=== PATIENT | female | born 1955 | race Caucasian/White ===

== ENCOUNTER 2019-05-04 12:12 | Day surgery (SDC) | payer MEDICARE, MEDICAID, SELFPAY ==
--- NOTE | 2019-05-03 19:51 | PCM.HP.BLA ---
History and Physical Date of Admission: 05/03/19 HISTORY AND PHYSICAL ? Lucila Hernandez 1955 ? REFERRING PHYSICIAN: ??Megan Nunez (Mor), LAURA.* ? CHIEF COMPLAINT: ??Consult (Abd pain) ? HPI: The patient is a 63 year old female referred for endoscopy. ?Lucila notes a 3 month history of left lower quadrant pain. ?She notes relatively constant pain in her left lower quadrant. ?If she does need food she notes that overall her pain is better. ?Her pain worsened one week previously. ?She was seen in internal medicine on April 15 with the above complaints. ?Laboratory studies and a CT scan of the abdomen and pelvis was obtained. ?Her white blood cell count was normal. ?Her temperature metabolic panel unremarkable. ?CT scan of the abdomen and pelvis demonstrated fecal retention with a nonobstructive bowel gas pattern and suspected diverticulitis in the distal left colon with possibly some dependent stranding in the pelvis. ?The patient was started on antibiotics. ?She is noted no improvement in the symptoms. ?She is noted watery diarrhea both before and after starting the antibiotics. ?She notes no blood in her stools. ?She denies fever or chills. ?She does note fecal urgency and notes whenever she eats anything she seems after the bathroom promptly after that. ? Repeat CT scan was obtained on April 20 which demonstrated less thickening and inflammatory change in the proximal sigmoid colon and less stranding in the cul-de-sac area but there was felt to be a new area of thickening in the distal colon raising the specter of colitis versus diverticulitis. ? She's had multiple surgical procedures including a cholecystectomy in 1995. ?She had a laparoscopic Lindsay fundoplication in 2001. ?She had incisional hernia repairs in 2011 and 2014.??She developed right main hepatic duct stricture and underwent ERCPs in 2013 with balloon dilatation. ?There was noted to be an incidental significant duodenal lipoma. ?She had had previous upper endoscopies for an overall sensation of abdominal pain and not feeling well. ? The patient had a previous colonoscopy in 2011 by ?demonstrated mild diverticulosis without other abnormalities. ? ? ? The patient is being seen by me today at the request of?Megan Nunez (Mor), FINANCIAL SALES ASSISTANT.*?my opinion and advice regarding left lower quadrant abdominal pain with a complex previous GI history.? PAST?MEDICAL?HISTORY PAST MEDICAL HISTORY Diagnosis Date ? Abnormal liver scan ? ? Acute gastritis ? ? Acute gastritis without mention of hemorrhage ? ? Anxiety 08/13/2012 ? 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 Esophageal reflux 07/02/2005 ? Hemorrhage of gastrointestinal tract, unspecified ? ? Hip arthritis 06/11/2010 ? Hypothyroidism 12/16/2012 ? Ileus, postoperative (HCC) 09/26/2013 ? questionable ileus post operatively. tolerated liquids but abdomen became distended. had some nause but no emesis. No flatus for 4 days. started having liquid BM's on day 5. abd now soft (09/26) ? Incisional hernia 09/30/2011 ? Internal hemorrhoids without mention of complication ? ? Irritable bowel syndrome 07/02/2005 ? Lichen planus ? ? of the mouth ? Lumbar degenerative disc disease 06/19/2014 ? 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 Nontoxic multinodular goiter ? ? Rectal prolapse 08/24/2013 ? Recurrent nongenital herpes simplex virus (HSV) infection 03/20/2015 ? Sciatica 07/02/2005 ? Trigeminal neuralgia 03/20/2015 ? Unspecified asthma(493.90) ? ? Has't used inhaler in 5 yrs. ? Unspecified constipation ? ? IBS ? Unspecified internal derangement of knee 08/09/2007 ??She also notes a history of mucous pemphigus ? ? PAST?SURGICAL?HISTORY PAST SURGICAL HISTORY Procedure Laterality Date ? CARPAL TUNNEL Bilateral 1988, 1994 ? Right then left. ? COLONOSCOP W/ OR W/O BRSH SPEC ? 06/21/03 ? Colonoscopy ? COLONOSCOP W/ OR W/O BRSH SPEC ? 2011 ? EGD W/O OR W/BRUSH/WASH ? 06/21/03 ? EGD ? EGD W/O OR W/BRUSH/WASH ? 10/24/2016 ? EGD ? FNA WITH IMAGING ? 01/15/2011 ? U/S FNA bilateral thyroid nodules ? FNA WITH IMAGING Bilateral 02/27/2015 ? U/S FNA bilateral thyroid nodules ? LAP INC HERNIA REPAIR ? 01-04-15 ? LAP, SURG ENTEROLYSIS ? 01-04-15 ? ? ? PAST SURGICAL HISTORY OF ? 05/31/02 ? Lap Lindsay ? REMOVAL GALLBLADDER ? ? Cholecystectomy ? REPAIR INCIS HERNIA W MESH ? 10-22-11 ? REPAIR INCISIONAL HERNIA,REDUCIBLE ? 10-22-11 ? VAGINAL HYSTERECTOMY ? 1983 ? Hysterectomy, vaginal ? ? ? CURRENT?MEDICATIONS ? Current Outpatient Medications: ciprofloxacin HCl (CIPRO) 500 mg tablet Take 1 tablet by mouth twice daily for 10 days. metroNIDAZOLE (FLAGYL) 500 mg tablet Take 1 tablet by mouth three times daily for 7 days. gabapentin (NEURONTIN) 100 mg capsule TAKE 2 CAPSULES THREE TIMES DAILY diazePAM (VALIUM) 5 mg tablet Take 1 tablet by mouth twice daily for 90 days. baclofen (LIORESAL) 10 mg tablet TAKE 1 TABLET THREE TIMES DAILY NEEDED FOR MUSCLE SPASMS dicyclomine (BENTYL) 10 mg capsule Take 1 capsule by mouth three times daily. mupirocin (BACTROBAN) 2 % ointment Apply 1 application to affected area three times daily. Location: wrist naproxen (NAPROSYN) 500 mg tablet Take 1 tablet by mouth twice daily with meals. for headache as needed ??may repeat in 1 hour ?if needed amitriptyline (ELAVIL) 75 mg tablet Take 2 tablets by mouth daily at bedtime. hselqzkxttIJANT-nyljfh-bfrofigou (BMX 1:1:1) 1:1:1 liqd Mix in equal amounts - 1 T every 2hrs as needed for mouth pain, Swish/swallow or expectorate. (8oz) levothyroxine (SYNTHROID) 88 mcg tablet Take 1 tablet by mouth daily before breakfast. ? No current facility-administered medications for this visit.? ? ALLERGIES:?Morphine; Sulfa (Sulfonamide Antibiotics); Codeine; Dapsone; Dilaudid [Hydromorphone (Bulk)]; Ibuprofen; Meloxicam; Tetracycline; Tizanidine; Valacyclovir; Vicodin [Hydrocodone-Acetaminophen] ? PERSONAL HISTORY:? SOCIAL?HISTORY Social History ??Socioeconomic History ?Marital status: ?Spouse name: Allen ?Number of children: 3 ?Years of education: Not on file ?Highest education level: Not on file ??Occupational History ?Occupation: retired ?Comment: work injury 2006 ??Social Needs ?Financial resource strain: Not on file ?Food insecurity: ?Worry: Not on file ?Inability: Not on file ?Transportation needs: ?Medical: Not on file ?Non-medical: Not on file ??Tobacco Use ?Smoking status: Former Smoker ?Packs/day: 0.50 ?Years: 15.00 ?Pack years: 7.5 ?Types: Cigarettes ?Quit date: 09/14/2004 ?Years since quittin.6 ?Smokeless tobacco: Never Used ??Substance and Sexual Activity ?Alcohol use: No ?Drug use: No ?Sexual activity: Never ??Lifestyle ?Physical activity: ?Days per week: Not on file ?Minutes per session: Not on file ?Stress: Not on file ??Relationships ?Social connections: ?Talks on phone: Not on file ?Gets together: Not on file ?Attends confucianism service: Not on file ?Active member of club or organization: Not on file ?Attends meetings of clubs or organizations: Not on file ?Relationship status: Not on file ?Intimate partner violence: ?Fear of current or ex partner: Not on file ?Emotionally abused: Not on file ?Physically abused: Not on file ?Forced sexual activity: Not on file ??Other Topics ?Concerns: ?Not on file ??Social History Narrative ?Not on file ?? ? FAMILY HISTORY:? FAMILY?HISTORY FAMILY HISTORY Problem Relation Age of Onset ? other (bowel problems) Father ? ? Diabetes Sister ? ? Diabetes Brother ? ? other (kidney transplant) Brother ? ? ? REVIEW OF SYMPTOMS: ??The review of systems data was entered by the nurse and reviewed by me ? Nursing Notes: Martínez Delgado LPN ?04/21/2019 10:45 AM ?Signed REVIEW OF SYSTEMS: ?General:???The patient denies fatigue, denies weight loss, NOTES weight gain, denies feeling hot, and denies feelings of cold. ?Eyes: ?The patient denies glaucoma, denies eye injury/surgery, does not wear glasses or contacts. ?Ear/Nose/Throat: ?The patient denies allergies, denies hayfever, denies ear infections, and denies bloody noses. ?Cardiovascular: ?The patient denies chest pain, denies heart disease, denies high blood pressure,denies cardiac stent, denies prior heart attack, denies irregular heart beat, denies high cholesterol, ?denies poor circulation, denies heart failure, other cardiac issues, denies claudication, denies cold feet, denies peripheral arterial stent. ?Respiratory: ?The patient denies tuberculosis, denies pneumonia, denies frequent cough, denies pulmonary embolism, denies shortness of breath, and denies coughing up blood. ?Gastrointestinal: ?The patient denies difficulty swallowing, NOTES acid reflux, denies ulcers, denies vomiting, denies jaundice/hepatitis, NOTES gallbladder problems, denies black or tarry stools, denies hemorrhoids, denies bleeding from rectum, NOTES diverticulitis, NOTES constipation, NOTES diarrhea, NOTES loss of stool control, and NOTES hernias. ?Kidney/Bladder: ?The patient denies kidney stones, denies urine infections, and denies bloody urine. ?Skin: ?The patient denies a history of skin cancer, denies bleeding/changing moles, and denies a history of skin rash. ?Neurologic: ?The patient denies a history of epilepsy/convulsions, denies headaches, denies head/spinal injuries, and denies stroke/TIA. ?Psychiatric: ?The patient denies psychiatric medications, denies depression, and denies voices, denies substance abuse. ?Endocrine: ?The patient NOTES thyroid disorders, denies diabetes, and denies hormonal problems. ?Hematologic: ?The patient denies a history of bruising, denies bleeding, and denies anemia, denies blood clots. ?Infections: ?The patient denies a history of measles and mumps, denies rheumatic fever, and denies sexually transmitted diseases. ?Musculoskeletal: ?The patient denies back pain/injury, NOTES back problems, denies sciatica, NOTES knee/foot trouble, denies arthritis, or denies gout. ? ? When was patient's last Mammogram screening? 11/01 ? ?Last Colonoscopy: ?10/26 ? Martínez Delgado LPN ? PHYSICAL EXAMINATION: ? General: ?The patient is 63 year old female, well nourished, well hydrated in no acute distress. ?The patient is oriented to time, place, and person. ? VITALS:?Blood pressure 126/66, pulse 89, temperature 36.4 ?C (97.5 ?F), height 162.6 cm (5' 4), weight 89.3 kg (196 lb 12.8 oz), SpO2 96 %.?Body mass index is 33.78 kg/m?.? ? HEENT: ?Normal cephalic, ataumatic, pupils are equally round, sclera are anicteric, mucous membranes are moist, oropharynx is clear. ?Neck has no masses, asymmetry or lymphadenopathy. ?Thyroid is unremarkable. ? Respiratory: ?Clear to auscultation and percussion. ?Normal respiratory excursion and pattern. ? Cardiac: ?Examination is regular rate and rhythm. ? Abdominal exam: ?Soft, tender in the left lower quadrant without peritoneal signs, ?with no palpable masses. ?No hepatosplenomegaly. ?No palpable hernias. ? Rectal exam:?exam deferred ? Extremities: ?no clubbing, cyanosis or edema. ?No adenopathy. ? Other: ? LABORATORY VALUES: As Noted ? RADIOLOGIC STUDIES: ?As Noted ? Assessment ? IMPRESSION:?Left lower quadrant pain complex past surgical history,?colon thickening-colitis more likely than diverticulitis ? PLAN:?? Plan to obtain stool cultures given her looser stools and antibiotic use. ?Also recommend Carole lax in an attempt to see if we can partially clear the proximal fecal loading and recommended a low residue diet. ?The patient is return next week after the stool studies were completed and we will repeat an?abdominal x-ray to see if her proximal fecal loading has decreased ? I plan to perform?upper and lower?endoscopy. ??We discussed the risks and benefits of the planned endoscopy. ?I have informed the patient that complications can occur including failure to complete the endoscopy and perforation. ?The patient had the opportunity to ask questions concerning the planned endoscopy. ?My staff has also explained the procedure to the patient in understandable terms and has given the patient printed material concerning the procedure. ?The patient freely consents to surgery. ? I plan to use golytely bowel preparation for endoscopy ? I plan for monitored anesthetic care. ? Diagnoses:?(K52.9) Idiopathic colitis ?(primary encounter diagnosis) ? My findings have been communicated to??Older?via shared medical record. ?This note will be forwarded to Farhad Gillespie MD. ?? Return to Clinic: The patient is instructed to follow-up with me?in one week. ? Morteza Hernandez MD
--- NOTE | 2019-05-04 | IMM_PTH ---
PATIENT: WILL MONTILLA LOC: EN U#:[id number] AGE/SX: 63/F ROOM: RE05/04/[address]: Dr. Morteza Hernandez MD : 1955 BED: DIS: 05/04/2019 SPEC #: [id number] RECD: 05/06/19 11:30 STATUS: GRANT REQ #: [id number] MATT: 05/04/19 00:[address]: Morteza Hernandez DEPT: IMMUNOHISTOCHEMISTRY RECD BY: Lizette Santana ENTERED: 05/06/19 11:30 SP TYPE: IMMUNO OTHR DR: Dr. Farhad Gillespie MD Tissues: A - Stomach, NOS Procedures: H Pylori (initial) PHYSICIAN & INSTITUTION [place] [id number] SPECIMEN INFORMATION: Tissue Source: A - Antrum biopsy Clinical Info: Abnormal CT scan, left lower quadrant pain Specimen Number: [id number] CPT code: 40019 METHODOLOGY: Deparaffinized sections of prefer/formalin-fixed tissue or PAP/DQ stained slides are incubated with monoclonal/polyclonal antibodies/oligonucleotide probes. Localization is made via biotin free immunoperoxidase method. Appropriate controls are performed and reacted as expected. Results on target cell population are indicated in the following table: RESULTS: ANTIBODY / CLONE RESULT Block A H Pylori (polyclonal) negative These tests were developed and their performance characteristics determined by [facility]. They may not have been cleared or approved by the U.S. Food and Drug Administration. The FDA has determined that such clearance or approval is not necessary. INTERPRETATION: A. Antrum, biopsy: Negative for Helicobacter pylori organisms. SJ:wilfred 05/06/19
[2019-05-04 12:52] VITALS: BP 126/80; PULSE 80; RESP 16; TEMP 36.2; O2SAT 96; BMI 32.9
[2019-05-04] MEDS: Lactated Ringers 1,000 ML 75 ML IV ×2 (13:12→15:30)
--- NOTE | 2019-05-04 13:30 | EGD_PTH ---
PATIENT: WILL MONTILLA LOC: EN U#:[id number] AGE/SX: 63/F ROOM: RE05/04/[address]: Dr. Morteza Hernandez MD : 1955 BED: DIS: 05/04/2019 SPEC #: [id number] RECD: 05/04/19 15:28 STATUS: GRANT REDaja #: [id number] MATT: 05/04/19 13:[address]: Morteza Hernandez DEPT: SURGICAL PATHOLOGY RECD BY: Erwin Mondragon ENTERED: 05/05/19 07:46 SP TYPE: EGD BIOPSY OT DR: Dr. Farhad Gillespie MD Tissues: A - Gastric mucous membrane B - Gastric mucous membrane C - COLON BIOPSY Procedures: Special Stain Group II Surgery Specimen Level IV Alcian Blue/PAS (control) HEADER OPERATION: Colonoscopy, EGD ([facility] [place]) PRE-OP DIAGNOSIS: Abnormal CT scan, left lower quad pain TISSUE SUBMITTED: A - Antrum biopsy, B - GE junction biopsy, C - Random colon biopsies MICROSCOPIC DIAGNOSIS A. Antrum, biopsy: Mild gastritis. See microscopic description and comment. B. GE junction, biopsy: Fragments of gastric mucosa with mild to moderate chronic inflammation. Intestinal metaplasia (goblet cell metaplasia) is not identified. See comment. C. Colon, random biopsy: Fragments of colonic mucosa, no pathologic diagnosis. SJ:rg 05/06/19 COMMENT A. The results of immunohistochemistry for Helicobacter pylori will be reported separately ([id number]). B. Alcian blue/PAS stain with matched control is used in the evaluation of the specimen. MICROSCOPIC DESCRIPTION Slides are reviewed. A. The specimen shows fragments of gastric mucosa with chronic inflammatory cell infiltrates in the lamina propria consisting of lymphocytes and plasma cells, consistent with mild chronic gastritis. GROSS DESCRIPTION A - Received in fixative is one container labeled with the patient's name and designated antrum biopsy. The specimen consists of one irregular fragment of light cordova soft tissue that measures 0.4 x 0.2 x 0.1 cm. The specimen is totally submitted in one cassette. B - Received in fixative is one container labeled with the patient's name and designated GE junction biopsy. The specimen consists of multiple irregular fragments of light cordova soft tissue that in aggregate measure 0.5 x 0.2 x 0.1 cm. The specimen is totally submitted in one cassette. C - Received in fixative is one container labeled with the patient's name and designated random colon biopsy, sigmoid - rectum. The specimen consists of multiple irregular fragments of light cordova soft tissue that in aggregate measure 0.5 x 0.3 x 0.1 cm. The specimen is totally submitted in one cassette. / SJ:rg 05/05/19 TC:3 CPT: 64317 x3, 53684
[2019-05-04 15:04] VITALS: BP 110/70; BP 126/80; PULSE 82; RESP 16; TEMP 36.8; O2SAT 92
[2019-05-04 15:10] VITALS: BP 118/75; BP 126/80; PULSE 82; RESP 16; O2SAT 92
[2019-05-04 15:15] VITALS: BP 121/73; BP 126/80; PULSE 80; RESP 16; O2SAT 95
[2019-05-04 15:20] VITALS: BP 124/68; BP 126/80; PULSE 78; RESP 16; TEMP 36; O2SAT 96
[2019-05-04 16:26] VITALS: BP 126/80
--- NOTE | 2019-05-05 08:52 | OP.ENDO_ITS ---
05/05/2019 Farhad Gillespie [address] [place] [address] Re : Upper GI endoscopy procedure for Lucila Lynn Dear Dr. Gillespie This procedure was performed on Saturday, May 04, 2019. My impressions and recommendations are as follows: Impressions : - Normal examined jejunum. - Duodenal lipoma. - Gastritis. Biopsied. - A Lindsay fundoplication was found. The wrap appears loose. - Mildly severe reflux esophagitis. Biopsied. Recommendations : - Return to my office in 1 week. - Continue present medications. My findings are described in the full procedure note, which is enclosed. If I can be of further assistance, please feel free to contact me at Doctor phone number(s): , Work: . Sincerely, Morteza Hernandez MD 05/04/2019 3:04:34 PM This report has been signed electronically.
--- NOTE | 2019-05-05 08:53 | OP.ENDO_ITS ---
05/05/2019 Farhad Gillespie [address] [place] [address] Re : Colonoscopy procedure for Lucila Hernandez Dear Dr. Gillespie This procedure was performed on Saturday, May 04, 2019. My impressions and recommendations are as follows: Impressions : - The entire examined colon is normal. Biopsied. - The distal rectum and anal verge are normal on retroflexion view. Recommendations : - Discharge patient to home. - Resume previous diet. - Continue present medications. - Return to my office in 1 week. - Repeat colonoscopy is recommended. The colonoscopy date will be determined after pathology results from today's exam become available for review. My findings are described in the full procedure note, which is enclosed. If I can be of further assistance, please feel free to contact me at Doctor phone number(s): , Work: . Sincerely, Morteza Hernandez MD 05/04/2019 3:06:41 PM This report has been signed electronically.
== END 2019-05-04 16:29 | disposition home or self-care (01) ==
LOC: EN 12:13 → AC 12:25
PROVIDERS: Family Provider Internal Medicine; PCP Internal Medicine; Referring Provider Internal Medicine; Visit Provider Surgery
PROC: 0DJD8ZZ Inspection of Lower Intestinal Tract, Via Natural or Artificial Opening Endoscopic (ICD-10-PCS; CPT 45378; principal; 2019-05-04 13:25)
DX: K29.70 Gastritis, unspecified, without bleeding (principal); D17.5 Benign lipomatous neoplasm of intra-abdominal organs; K21.0 Gastro-esophageal reflux disease with esophagitis; F41.9 Anxiety disorder, unspecified; F32.9 Major depressive disorder, single episode, unspecified; L51.9 Erythema multiforme, unspecified; M16.10 Unilateral primary osteoarthritis, unspecified hip; E03.9 Hypothyroidism, unspecified; L43.9 Lichen planus, unspecified; E04.2 Nontoxic multinodular goiter; J45.909 Unspecified asthma, uncomplicated; K58.1 Irritable bowel syndrome with constipation; Z79.2 Long term (current) use of antibiotics; Z79.899 Other long term (current) drug therapy; Z87.891 Personal history of nicotine dependence
CPT/HCPCS: 43239; 45380; 88305; 88313; 88342; J7120; J2405

== ENCOUNTER 2020-07-06 09:04 | Emergency (ER) | payer MEDICARE, MEDICAID, SELFPAY ==
[2020-07-06 09:04] VITALS: BP 163/91; PULSE 86; RESP 18; TEMP 36.1; O2SAT 98; BMI 31.9
--- NOTE | 2020-07-06 09:21 | ED.DCSUM_ITS ---
History of Present Illness Informant: Patient Onset: Month(s) - 1 month Activity at onset: - - movement Timing: Continuous Quality: Sharp, Stabbing Location: Left Chest Current Severity: Moderate Maximum Severity: Severe Worsened By: Movement of Arm, Movement of Torso. Not Worsened By: Exertion Relieved By: Nothing Associated Symptoms: Negative for: Nausea, Vomiting, Diaphoresis, Dyspnea, Cough, Fever, Lightheadedness, Acid Reflux, Palpitations Narrative: 64-year-old female presents to the emergency department with chest pain. The patient has been having intermittent left-sided chest pain after the last 4 weeks. It is in the left side of her chest and her left arm the left side of her back. It has been constant. It is not exertional. She has no shortness of breath. She is not lightheaded or dizzy. No nausea vomiting or diaphoresis. No leg pain or swelling. No recent travel or surgery. No history of DVT or PE. She is a non-smoker. She does have chronic back pain. She states that she takes Valium and baclofen but has not been relieving the pain. She has no history of coronary artery disease. Prior Similar Symptoms: No Recent Illness/Hospitalization: No CVD Risk Factors: Negative for: Hypertension, Diabetes, Hypercholesterolemia, Family History 1' </=55, Smoking PE Risk Factors: Negative for: Recent Travel/Surgery, Recenet Immobilization, Prior DVT or PE, Cancer TAD Risk Factors: Negative for: Marfan's Syndrome, Hypertension, Family History <Moises Mcfadden - Last Filed: 07/06/20 10:22> <Omar Figueroa - Last Filed: 07/06/20 15:40> Chief Complaint: Chest Pain Past Medical History Prior records reviewed: Yes Past Medical History: - - hypothyroidismk, chronic back pain Surgical History: no surgical history Lives: With Family Smoking Status: Never smoker Alcohol: None Drugs: None <Moises Mcfadden - Last Filed: 07/06/20 10:22> <Omar Figueroa - Last Filed: 07/06/20 15:40> - Allergies and Home Meds Allergies/Adverse Reactions: Allergies morphine Allergy (Verified 07/06/20 09:06) Hives Sulfa (Sulfonamide Antibiotics) Allergy (Verified 07/06/20 09:06) Hives Tetracyclines Allergy (Verified 07/06/20 09:06) Rash valacyclovir Allergy (Verified 07/06/20 09:06) Shortness of breath acetaminophen [From Vicodin] Adverse Reaction (Verified 07/06/20 09:06) Upset Stomach codeine Adverse Reaction (Verified 07/06/20 09:06) Vomiting hydrocodone bitartrate [From Vicodin] Adverse Reaction (Verified 07/06/20 09:06) Upset Stomach hydromorphone HCl [From Dilaudid] Adverse Reaction (Verified 07/06/20 09:06) Other meloxicam Adverse Reaction (Verified 07/06/20 09:06) Other tizanidine Adverse Reaction (Verified 07/06/20 09:06) Other lowers blood pressure Primary Care Physician: Farhad Gillespie MD [Primary Care Provider] - As soon as possible Review of Systems All systems negative except as indicated General: Denies: Chills, Fever, Sweats Eyes: Denies: Visual changes - bilaterally, Diplopia ENT: Denies: Rhinorrhea, Sore throat Cardiovascular: Reports: Chest pain. Denies: Palpitations, Heart racing Respiratory: Denies: Dyspnea, Cough, Sputum, Dyspnea on exertion, Orthopnea, Paroxysmal nocturnal dyspnea Gastrointestinal: Denies: Abdominal pain, Nausea, Vomiting, Diarrhea, Melena, Hematochezia Genitourinary: Denies: Dysuria, Hematuria, Frequency Musculoskeletal: Denies: Back pain, Swelling, Extremity Pain Skin: Denies: Rash, Wounds Neurological: Denies: Headache, Weakness, Numbness <Moises Mcfadden - Last Filed: 07/06/20 10:22> Physical Exam Vital Signs/Narrative: Vital Signs Temp Pulse Resp BP Pulse Ox 07/06/20 09:04 97 F L 86 18 163/91 H 98 Inital Vital Signs reviewed: Yes General: Well nourished, Well developed, No Acute Distress Head: Normocephalic, Atraumatic Eyes: Perrl, EOMI ENT: Moist mucous membranes, No rhinorrhea Neck: Supple, Nontender Cardiovascular: Regular rate, Regular rhythm, No murmurs Respiratory: No distress, CTA bilaterally, Chest nontender Abdomen: Soft, Nontender, Nondistended, Normal bowel sounds Back: Nontender, Normal Inspection Extremities: Nontender, No edema Skin: Normal color, No rash Neurological: Alert, Oriented x3, Cranial nerves II-XII grossly intact, Normal Strength, Normal Sensation Psychological: Normal affect, Normal Mood <Moises Mcfadden - Last Filed: 07/06/20 10:22> Diagnostic/Tx/Re-eval Chest X-Ray - ED: 1 View, Read by ED Physician, Read by Radiologist, No Acute Disease - Rhythm Strip Rhythm Strip: Sinus Rhythm Rate: 77 Ectopy: None - EKG Initial EKG Interpretation: Sinus Rhythm, No Acute Injury Pattern Prior: No Prior Treatment: Aspirin Repeat Eval: Pain Free - Medical Decision Making Patient pain-free on arrival. EKG sinus rhythm. 78 bpm. No ischemic changes are noted. She was treated with aspirin. Chest x-ray unremarkable. CBC, BMP, troponin unremarkable. Heart score calculated at 2. Patient has had pain now for a month her troponin is negative her heart score is 2 we do not feel she needs repeat troponin. She does have history of chronic back pain and we told her that her symptoms could possibly be be due to to that however I did instruct her to call her primary today to schedule an appointment to schedule a stress test. She was advised to return for worsening symptoms. She was agreeable with plan all questions answered and she will be discharged home in stable condition. <Moises Mcfadden - Last Filed: 07/06/20 10:22> - Medical Decision Making Patient interviewed and evaluated independently by myself in concert with physician assistant teaching professor. Agree with the above. Patient appears well nontoxic. Patient chest pain has been constant over a period of time. A single troponin should effectively rule her out for ACS. Did advise that she calls her primary care physician for outpatient stress test. Asked to return for new or worsening symptoms. Patient agreeable and discharged home in stable condition. <Omar Figueroa - Last Filed: 07/06/20 15:40> ED Disposition <Moises Mcfadden - Last Filed: 07/06/20 10:22> <Omar Figueroa - Last Filed: 07/06/20 15:40> - Plan for ED Patient: Disposition: Home or Assisted Living Diagnosis: Chest pain, DDD (degenerative disc disease) Instructions: ED Chest Pain Atypical Unkn Cause Referrals: Farhad Gillespie MD [Primary Care Provider] - As soon as possible
--- NOTE | 2020-07-06 09:21 | EKG12_ITS ---
Test Reason : CP Blood Pressure : / mmHG Vent. Rate : 078 BPM Atrial Rate : 078 BPM P-R Int : 170 ms QRS Dur : 112 ms QT Int : 396 ms P-R-T Axes : 041 -21 073 degrees QTc Int : 451 ms Normal sinus rhythm Normal ECG Confirmed by SHAYNE MCFARLANE, JOSEPHINE ([id number]), newspaper editor managing YOSELIN STEPHENS ([id number]) on 07/09/2020 11:24:33 AM Referred By: BRIANNA Confirmed By:JOSEPHINE BELLA MD
[2020-07-06 09:30] LABS: Absolute Lymphocyte Count 1.29 X10^3/uL (0.83-4.51); Absolute Neutrophil Count 3.9 X10^3/uL (2.0-7.7); Basophil# 0.02 X10^3/uL; Basophil% 0.3 % (0-1); Eosinophil# 0.21 X10^3/uL; Eosinophils% 3.6 % (0-5); Hematocrit 39.3 % (37-47); Hemoglobin 12.6 g/dL (12.0-15.0); Lymphocyte # 1.29 X10^3/ul (4.0); Lymphocyte % 22.1 % (19-41); Mean Corp Hgb Conc 32.1 g/dL (32-36); Mean Corpuscular Hgb 27.1 pg (27.0-32.0); Mean Corpuscular Volume 84.5 fL (81-99); Monocyte# 0.39 X10^3/uL; Monocyte% 6.7 % (0-10); NRBC Flagged by Analyzer 0 % (0-5); Platelet Count 252 K/mm3 (150-450); RBC Distribution Width CV 13.4 % (11.6-14.6); RBC Distribution Width SD 41.3 fl (35.1-43.9); Red Blood Count 4.65 M/mm3 (4.2-5.4); White Blood Count 5.8 K/mm3 (4.4-11.0)
[2020-07-06] MEDS: Aspirin 81 MG TAB.CHEW 324 MG PO (09:32)
[2020-07-06 09:34] VITALS: BP 136/81; PULSE 80; RESP 18; O2SAT 99
--- NOTE | 2020-07-06 09:38 | RAD_ITS ---
STUDY: X-RAY CHEST REASON FOR EXAM: Female, 64 years old. CHEST PAIN FOR ABOUT A MONTH, INTERMITTENT, CHANGES LOCATION TECHNIQUE: Single AP portable view of the chest. COMPARISON: None. FINDINGS: EKG electrodes are seen. The lungs are clear and expanded. There is no demonstrated pleural abnormality. Normal size heart. Normal mediastinum and brandon. Normal visualized pulmonary arteries. Normal visualized aortic arch and descending thoracic aorta. Normal visualized thoracic spine. Normal visualized ribs, clavicles, and shoulders. There is no demonstrated abnormality of the visualized soft tissue structures of the upper abdomen. RAD/Chest 1 View (Portable) IMPRESSION: Normal x-ray examination of the chest. Electronically Signed: Reyes Fatima, at 10:10 EDT , Service support ,
[2020-07-06 09:47] LABS: Anion Gap 4 (5-15); BUN 15 mg/dL (7-18); BUN/Creat Ratio 12.7 RATIO (10-20); Calcium,Total 9.1 mg/dL (8.5-10.1); Chloride 108 mmol/L (98-107); Creatinine, Serum 1.18 mg/dL (0.55-1.02); EST Glomerular Filtration Rate 49 mL/min (>60); Est Glom Filt Rate - Afr Amer 59 mL/min (>60); Estimated Creatinine Clearance 41.59 ml/min; Glucose 105 mg/dL (74-106); Potassium 4.3 mmol/L (3.5-5.1); Sodium Level 141 mmol/L (136-145)
[2020-07-06 10:40] VITALS: BP 134/78; PULSE 76; RESP 18; O2SAT 95
== END 2020-07-06 10:43 | disposition home or self-care (01) ==
PROVIDERS: Emergency Provider Physician Assistant Medical; PCP Internal Medicine
DX: R07.9 Chest pain, unspecified (principal)
CPT/HCPCS: 71045; 80048; 84484; 85025; 93005; 99283; A4216

== ENCOUNTER → 2020-07-24 17:39 | Outpatient (CLI) | payer MEDICARE, MEDICAID, SELFPAY ==
[2020-07-06 09:04] VITALS: BMI 31.9
== END ==
PROVIDERS: PCP Internal Medicine; Referring Provider Nurse Practitioner; Visit Provider Nurse Practitioner
DX: Z20.828 Contact with and (suspected) exposure to other viral communicable diseases (principal)
CPT/HCPCS: 87635; C9803; U0003

== ENCOUNTER 2020-09-30 05:23 | Emergency (ER) | payer MEDICARE, MEDICAID, SELFPAY ==
--- NOTE | 2020-09-30 | CT_ITS ---
STUDY: CT ABDOMEN AND PELVIS WITH CONTRAST REASON FOR EXAM: Female, 64 years old. DIFFUSE AB PAIN AND RIGHT SHOULDER PAIN X 5 DAYS. PRIOR MULTIPLE HERNIA REPAIRS,CHOLECYSTECTOMY,HYSTERECTOMY AND RECTAL PROLAPSE REPAIR RADIATION DOSAGE (If Supplied By Facility): CTDIvol = ( 21.63 ) mGy, DLP = ( 1282.79 ) mGycm TECHNIQUE: Transaxial images were obtained from the dome of the diaphragm to the symphysis pubis with oral contrast. Oral and amp; IV Gastrografin and amp; 100mL Isovue-370 was administered. Sagittal and coronal images were reconstructed. Individualized dose optimization techniques were used for this CT. COMPARISON: 04/15/2015 FINDINGS: The visualized lung bases are unremarkable. The visualized portions of the heart are within normal limits. There is a small amount of ascites and pneumoperitoneum primarily in the upper abdomen worrisome for bowel perforation. Normal liver. There are surgical clips in the gallbladder fossa consistent with a prior cholecystectomy. Normal spleen. Normal pancreas. Normal bilateral adrenal glands. Normal right kidney. Normal left kidney. There is an unusual appearance to the gastroesophageal junction likely related to prior Lindsay fundoplication. There is wall thickening of the antrum of the stomach and duodenal bulb with stranding of surrounding fat suggestive of gastritis and/or duodenitis. No change in 1.5 cm lipoma in the second portion the duodenum. Normal colon. The appendix is visualized and appears normal. Normal abdominal aorta. Normal inferior vena cava. Normal retroperitoneum. Normal urinary bladder. Normal abdominal wall. Normal osseous structures. CT/Abdomen/Pelvis WITH Contrast IMPRESSION: Suspect gastritis and/or duodenitis with the perforation with a small amount of ascites and pneumoperitoneum. N.B. : The above information has been verbally conveyed by Morteza Tirado MD to Dr Henry MD, on 09/30/2020 07:52:04 (ET). Electronically Signed: Morteza Tirado MD at 7:53 EST Tel , Service support ,
[2020-09-30 05:24] VITALS: BP 117/64; PULSE 72; RESP 18; TEMP 36.4; O2SAT 95; BMI 32.9
--- NOTE | 2020-09-30 05:51 | ED.VISSUMM ---
- ER Visit Summary Date of Service: 09/30/20 Chief Complaint: Abdominal pain History of Present Illness: The patient is a 64 F presenting with abdominal pain. Patient states she has been having left-sided lower abdominal pain for the past 4 to 5 days. Today she states the pain is more on the right side. The left lower pain has subsided. She denies nausea or vomiting. She had a normal bowel movement last night. She denies fever. She has history of multiple surgeries due to hernias. She has had a cholecystectomy and hysterectomy. Physical Examination: Vitals are stable. Patient is afebrile. Alert no acute distress. HEENT exam is unremarkable. Neck is supple. Lungs are clear and equal bilaterally. Heart is regular rate and rhythm. Abdomen is soft right lower quadrant tenderness Extremities are unremarkable. Skin is warm and dry. No focal neurologic deficit. Remainder of exam is unremarkable. Emergency Department Course and Treatment: Patient has multiple allergies. She was given fentanyl IV. CBC, chemistries unremarkable other than glucose 150, creatinine 1.13. Liver lipase are normal except alk phos 123. Lactate is normal. CT abdomen pelvis is pending at this time and will be checked out to the oncoming physician. Disposition: Pending Impression: Abdominal pain This note was generated with [employer] dictation software. It may contain incorrect words, spelling, and punctuation that were not noted in review of the chart prior to signing ED Disposition - Plan for ED Patient: Referrals: Farhad Gillespie MD [Primary Care Provider] -
[2020-09-30] MEDS: 0.9% Normal Saline 1,000 ML 1000 ML IV (06:03)
[2020-09-30] MEDS: Ondansetron 4 MG/2 ML Vial IV (06:03)
[2020-09-30 06:04] LABS: Absolute Lymphocyte Count 1.54 X10^3/uL (0.83-4.51); Absolute Neutrophil Count 8.1 X10^3/uL (2.0-7.7); Basophil# 0.02 X10^3/uL; Basophil% 0.2 % (0-1); Eosinophil# 0.18 X10^3/uL; Eosinophils% 1.7 % (0-5); Hematocrit 39.3 % (37-47); Hemoglobin 12.6 g/dL (12.0-15.0); Lymphocyte # 1.54 X10^3/ul (4.0); Mean Corp Hgb Conc 32.1 g/dL (32-36); Mean Corpuscular Hgb 27.1 pg (27.0-32.0); Mean Corpuscular Volume 84.5 fL (81-99); Mean Platelet Vol. 9.7 fl (6.2-12.0); Monocyte# 0.39 X10^3/uL; Monocyte% 3.8 % (0-10); NRBC Flagged by Analyzer 0 % (0-5); Neutrophil # 8.14 X10^3/uL (2.7-7.7); Platelet Count 295 K/mm3 (150-450); RBC Distribution Width CV 13.5 % (11.6-14.6); RBC Distribution Width SD 41.7 fl (35.1-43.9); Red Blood Count 4.65 M/mm3 (4.2-5.4); White Blood Count 10.3 K/mm3 (4.4-11.0)
[2020-09-30] MEDS: fentaNYL 100 MCG/2 ML Ampul 50 MCG IV ×3 (06:07→09:28)
[2020-09-30 06:18] LABS: ALB/GLOB Ratio 0.9 RATIO (0.9-2.4); AST(SGOT) 14 U/L (15-37); Alanine Aminotransfer ALT/SGPT 17 U/L (13-56); Albumin, Serum 3.6 g/dL (3.2-5.0); Alkaline Phosphatase 123 U/L (45-117); Anion Gap 3 (5-15); BUN 17 mg/dL (7-18); Chloride 106 mmol/L (98-107); Creatinine, Serum 1.13 mg/dL (0.55-1.02); EST Glomerular Filtration Rate 51 mL/min (>60); Est Glom Filt Rate - Afr Amer 62 mL/min (>60); Estimated Creatinine Clearance 43.43 ml/min; Globulin 4.1 g/dL (2.2-4.2); Glucose 150 mg/dL (74-106); Lipase 144 U/L (73-393); Potassium 3.8 mmol/L (3.5-5.1); Protein, Total 7.7 g/dL (6.4-8.2); Sodium Level 139 mmol/L (136-145)
[2020-09-30 07:24] LABS: Bacteria 0 SEEN /hpf (None Seen); Mucous, Urine 0 SEEN /hpf (<or=2+); Red Blood Cells-Urine 0 SEEN /hpf (0-5); White Blood Cells 0 SEEN /hpf (0-5)
[2020-09-30 07:29] LABS: Color, Urine Yellow (Yellow); Glucose, Dipstick Normal (Normal); Ketone-Dipstick Negative (Negative); Leukocyte Esterase-Dipstick Negative /ul (Negative); Nitrite-Dipstick Negative (Negative); Occult Blood-Urine Negative /ul (Negative); Protein-Dipstick Negative (Negative); Specific Gravity, Urine 1.015 (1.002-1.030); Urine Bilirubin Dipstick Negative (Negative); Urine Clarity Clear (Clear); Urine Urobilinogen Normal (Normal); Urine pH 6.5 (5.0 - 8.0)
[2020-09-30 07:34] LABS: Squamous Epithelial Cells - UA 0-5 SEEN /hpf (5-10)
[2020-09-30 07:56] VITALS: BP 147/74; PULSE 92; RESP 18; O2SAT 100
[2020-09-30 09:06] VITALS: BP 145/70; PULSE 93; RESP 22; O2SAT 98
--- NOTE | 2020-09-30 09:07 | ED.RN ---
[facility] HERE TO TRANSPORT PATIENT, CARE AND REPORT TO THEM, PATIENT STATUS UNCHANGED AT THIS TIME.
== END 2020-09-30 09:41 | disposition short-term general hospital (02) ==
PROVIDERS: Emergency Medicine; Emergency Provider Emergency Medicine; PCP Internal Medicine
DX: R10.9 Unspecified abdominal pain (principal); K29.80 Duodenitis without bleeding
CPT/HCPCS: 74177; 80053; 81001; 83605; 83690; 85025; 87426; 96365; 96375; 96376; 99285; J7030; J7050; Q9967; A4216; J2405

== ENCOUNTER 2021-01-07 08:11 | Outpatient (RCR) | payer MEDICARE, MEDICAID, SELFPAY ==
[2021-01-07 08:30] VITALS: BP 115/78; PULSE 102; RESP 16; TEMP 36.3; BMI 28.6
--- NOTE | 2021-01-07 11:35 | HP.PCM_ITS ---
History of Present Illness Date of Service: 01/07/21 Past Medical History Surgical History: no surgical history Allergies/Adverse Reactions: Allergies morphine Allergy (Verified 09/30/20 05:27) Hives Sulfa (Sulfonamide Antibiotics) Allergy (Verified 09/30/20 05:27) Hives Tetracyclines Allergy (Verified 09/30/20 05:27) Rash valacyclovir Allergy (Verified 09/30/20 05:27) Shortness of breath acetaminophen [From Vicodin] Adverse Reaction (Verified 09/30/20 05:27) Upset Stomach codeine Adverse Reaction (Verified 09/30/20 05:27) Vomiting hydrocodone bitartrate [From Vicodin] Adverse Reaction (Verified 09/30/20 05:27) Upset Stomach hydromorphone HCl [From Dilaudid] Adverse Reaction (Verified 01/07/21 08:44) HYPOTENSION meloxicam Adverse Reaction (Verified 01/07/21 08:44) MOOD tizanidine Adverse Reaction (Verified 01/07/21 08:44) HYPOTENSION lowers blood pressure Home Medications: Ambulatory Orders Medication Instructions Recorded Amitriptyline HCl [Elavil] 150 mg PO QHS 01/02/15 Diazepam [Valium] 5 mg PO BID 01/02/15 Dicyclomine HCl [Bentyl] 10 mg PO TIDAC 01/02/15 Gabapentin [Neurontin] 200 mg PO TID 01/02/15 Levothyroxine [Synthroid] 100 mcg PO DAILY 01/02/15 Baclofen 10 mg PO TID 05/02/19 Magic Mouth Wash 5 ml PO TID 09/30/20 Pantoprazole Sodium [Protonix] 40 mg PO BID 01/07/21 Smoking Status: Never smoker - Physical Exam Vital Signs Temp Pulse Resp BP 97.4 F L 102 H 16 115/78 01/07/21 08:30 01/07/21 08:30 01/07/21 08:30 01/07/21 08:30 Wound Measurements and Assessment WC - Nurse 1 - General Ulcer Measurement Start: 01/07/21 08:29 Freq: Status: Active Protocol: Activity Type Activity Date Activity User E-Sign Co-Sign Detail Recorded Client Recorded Date Recorded By Document 01/07/21 08:30 [facility] [id number] 01/07/21 08:41 BMF 01/07/21 08:30 Wound Center Nurse 1 [Ulcer Assessment] #1- MID ABDOMEN POST OP ([facility]) -Combined with other wound No -Current Size (cm) - Length 1 -Current Size (cm) - Width 0.8 -Current Size (cm) - Depth 0.1 -Total Square Cm 0.8 -Date of Last Picture (Recall this 01/07/21 field) -Photo Taken Yes -Epithelialization None Present -Tunneling No -Undermining/Tunneling No -Circular Undermining No -Exudate Amt None Present -Wound Margin Distinct, Outline Attached -Granulation Amt None Present (0 %) -Slough/Fibrin Yes -Necrosis Amt Large (67-100%) -Necrotic Tissue Type Eschar -Texture (Haley-wound Skin Appearance) Assessed, Scarring -Moisture (Haley-wound Skin Appearance Assessed,Dry/ ) Scaly -Color (Haley-wound Skin Appearance) Assessed -Temperature (Haley-wound Skin No Abnormality Appearance) (Pt Warm) -Tenderness on Palpation (Haley-wound No Skin Appearance) -Ulcer Cleansing Rinsed/ Irrigated with Saline -Foul Odor after Cleansing No -Anesthetic Used 4% Lidocaine Solution WC - Nurse 2 - General Ulcer CM Notes Start: 01/07/21 08:29 Freq: Status: Active Protocol: Activity Type Activity Date Activity User E-Sign Co-Sign Detail Recorded Client Recorded Date Recorded By Document 01/07/21 09:02 [email or web address] [id number] 01/07/21 09:03 [email or web address] 01/07/21 09:02 Wound Center Nurse 2 [Procedure/Treatment] -Time 09:02 -Correct Patient Yes -Correct Side, Site, Position Yes -Correct Procedure Yes -Procedure Performed Yes -Type of Procedure Debridement -Clinical Debridement Subcutaneous -Tissue Removed Subcutaneous -Post Debridement (cm) - Length 0.4 -Post Debridement (cm) - Width 0.4 -Post Debridement (cm) - Depth 0.2 -Total Square (Post) (cm) 0.16 -Area of Debridement (cm) - Length 0.4 -Area of Debridement (cm) - Width 0.4 -Total Square (Area) (cm) 0.16 -Tunneling No -Undermining/Tunneling No -Circular Undermining No -Wound/Ulcer Outcome Not Healed -Ulcer Cleansing Rinsed/ Irrigated with Saline -Foul Odor after Cleansing No -Bioengineered Tissue No -Bleeding Controlled with Pressure -Offloading No -Treatment Response Procedure Tolerated Well -Debridement - Subq, 1st 20sq cm Yes [See Physician Procedure note for Specifics] Pain Scale: 0-10 Numeric [Pain] -Is Patient Pain Free? Yes - Nurse 3 - General Ulcer D/C NN Start: 01/07/21 08:29 Freq: Status: Active Protocol: Activity Type Activity Date Activity User E-Sign Co-Sign Detail Recorded Client Recorded Date Recorded By Document 01/07/21 09:10 [facility] [id number] 01/07/21 09:11 [facility] 01/07/21 09:10 Wound Care Nurse 3 [Wound Dressing] #1- MID ABDOMEN POST OP ([facility]) -Ulcer Cleansing Rinsed/ Irrigated with Saline -Foul Odor after Cleansing No -Primary Dressing Applied C Hydrogel ($) -Primary Dressing Covered/Secured Dry Gauze, with Secured with Tape [Post Procedure Tolerated] -Treatment Response Procedure Tolerated Well Pain Scale: 0-10 Numeric [Pain] -Is Patient Pain Free? Yes - Visit Discharge [Visit Discharge Information] -Discharge Condition Stable -Ambulatory Status Ambulatory -Transportation Private Auto Debridement Note Post-Debridement Measurements/Treatment - Nurse 2 - General Ulcer CM Notes Start: 01/07/21 08:29 Freq: Status: Active Protocol: Activity Type Activity Date Activity User E-Sign Co-Sign Detail Recorded Client Recorded Date Recorded By Document 01/07/21 09:02 [id number] 01/07/21 09:03 [email or web address] 01/07/21 09:02 Wound Center Nurse 2 #1- MID ABDOMEN POST OP ([facility]) -Time 09:02 -Correct Patient Yes -Correct Side, Site, Position Yes -Correct Procedure Yes -Procedure Performed Yes -Type of Procedure Debridement -Clinical Debridement Subcutaneous -Tissue Removed Subcutaneous -Post Debridement (cm) - Length 0.4 -Post Debridement (cm) - Width 0.4 -Post Debridement (cm) - Depth 0.2 -Total Square (Post) (cm) 0.16 -Area of Debridement (cm) - Length 0.4 -Area of Debridement (cm) - Width 0.4 -Total Square (Area) (cm) 0.16 -Tunneling No -Undermining/Tunneling No -Circular Undermining No -Wound/Ulcer Outcome Not Healed -Ulcer Cleansing Rinsed/ Irrigated with Saline -Foul Odor after Cleansing No -Bioengineered Tissue No -Bleeding Controlled with Pressure -Offloading No -Treatment Response Procedure Tolerated Well -Debridement - Subq, 1st 20sq cm Yes Pain Scale: 0-10 Numeric Is Patient Pain Free? Yes - Nurse 3 - General Ulcer D/C NN Start: 01/07/21 08:29 Freq: Status: Active Protocol: Activity Type Activity Date Activity User E-Sign Co-Sign Detail Recorded Client Recorded Date Recorded By Document 01/07/21 09:10 [facility] [id number] 01/07/21 09:11 [facility] 01/07/21 09:10 Wound Care Nurse 3 #1- MID ABDOMEN POST OP ([facility]) -Ulcer Cleansing Rinsed/ Irrigated with Saline -Foul Odor after Cleansing No -Primary Dressing Applied C Hydrogel ($) -Primary Dressing Covered/Secured with Dry Gauze, Secured with Tape Treatment Response Procedure Tolerated Well Pain Scale: 0-10 Numeric Is Patient Pain Free? Yes - Visit Discharge Discharge Condition Stable Ambulatory Status Ambulatory Transportation Private Auto
--- NOTE | 2021-01-08 19:58 | HP.PCM_ITS ---
History of Present Illness Date of Service: 01/07/21 Chief Complaint: Non healing midline abdominal ulcer History of Wound: Patient had emergency surgery at [facility] 09/30/20 for an exploratory laparotomy, washout, biopsy of gastric perforation, modified Hector patch and wound VAC placement for a perforated duodenal ulcer and acute peritonitis. She now has a midline abdominal incision that has an area that will not heal. The small area will scab over, then will re open and leak. She has been putting dry gauze on the scabbed area. [facility] Medical History (Updated 01/09/21 @ 11:14 by Sherry Gallegos [employer], [employer]) Duodenal ulcer, perforated FHx: cholecystectomy GERD (gastroesophageal reflux disease) Rectal prolapse no medical history Home Medications amitriptyline 150 mg PO QHS 01/02/15 [History Last Taken Unknown] diazepam 5 mg PO BID 01/02/15 [History Last Taken Unknown] dicyclomine 10 mg PO TIDAC 01/02/15 [History Last Taken Unknown] gabapentin 200 mg PO TID 01/02/15 [History Last Taken 05/04/19 12:50] levothyroxine 100 mcg PO DAILY 01/02/15 [History Last Taken Unknown] baclofen 10 mg PO TID 05/02/19 [History Last Taken 05/04/19 12:50] Magic Mouth Wash 5 ml PO TID 09/30/20 [History Last Taken Unknown] pantoprazole 40 mg PO BID 01/07/21 [History Last Taken Unknown] Allergy/AdvReac Type Severity Reaction Status Date / Time morphine Allergy Hives Verified 09/30/20 05:27 Sulfa (Sulfonamide Allergy Hives Verified 09/30/20 05:27 Antibiotics) Tetracyclines Allergy Rash Verified 09/30/20 05:27 valacyclovir Allergy Shortness Verified 09/30/20 05:27 of breath acetaminophen [From Vicodin] AdvReac Upset Verified 09/30/20 05:27 Stomach codeine AdvReac Vomiting Verified 09/30/20 05:27 hydrocodone bitartrate AdvReac Upset Verified 09/30/20 05:27 [From Vicodin] Stomach hydromorphone HCl AdvReac HYPOTENSION Verified 01/07/21 08:44 [From Dilaudid] meloxicam AdvReac MOOD Verified 01/07/21 08:44 tizanidine AdvReac HYPOTENSION Verified 01/07/21 08:44 no significant family history Surgical History (Updated 01/09/21 @ 10:04 by Sherry Gallegos [employer], [employer]ER[employer]) H/O: hysterectomy History of incisional hernia repair History of Lindsay fundoplication Social History (Reviewed 01/08/21 @ 20:14 by Sherry Gallegos [employer], [employer]ER[employer]) Smoking Status: Never smoker ROS Constitutional Constitutional: Reports systems reviewed and no addt'l complaints, except as documented Eyes Eyes: Reports none ENT HEENT: Reports none Cardiovascular Cardiovascular: Denies chest pain at rest, irregular heart rhythm, leg edema or syncope Respiratory/Chest Respiratory/Chest: Denies chest congestion, cough, dyspnea or shortness of breat h at rest Gastrointestinal Gastrointestinal: Denies abdominal pain, change in stool character or diarrhea Musculoskeletal Musculoskeletal: Reports none Integumentary Integumentary: Reports skin ulcer Neurologic Neurologic: Reports none Psychiatric Psychiatric: Reports none Endocrine Endocrinology: Reports none Allergic/Immunologic Allergic/Immunologic: Reports none Physical Exam Const alert, oriented x3 and no apparent distress General Appearance: cooperative and well kempt Orientation / Consciousness: awake HEENT normocephalic and head/scalp atraumatic Face and Sinus: normal facial exam Eyes EOMs intact bilaterally General Eye: normal appearance of both eyes Neck full ROM Lymph Lymphatic: no lymphadenopathy noted Resp normal respiratory effort and normal air movement Effort and Inspection: able to speak in complete sentences and symmetric chest movement Auscultation: clear to auscultation bilaterally Cardio regular rate and regular rhythm Palpation: normal PMI Rate: regular rate Rhythm: regular rhythm GI soft to palpation and non-tender Auscultation: normoactive bowel sounds Palpation: soft; Negative for tender Rectal Exam: deferred Extremity normal to inspection, full ROM and no pedal edema General Extremity: normal exam except as noted Skin Skin Narrative: Midabdominal surgical incision is healed except for a small area in the center is small open area. Incisional scarring is thick, pink and firm. Neuro CN's II-XII intact bilaterally Psych mental status grossly normal Assessment and Debridement #1- MID ABDOMEN POST OP ([facility]): Post-Debridement Measurements/Treatment WC - Nurse 1 - General Ulcer Assessment Start: 01/07/21 08:29 Freq: Status: Active Protocol: LOWEXT Activity Type Activity Date Activity User E-Sign Co-Sign Detail Recorded Client Recorded Date Recorded By Document 01/07/21 08:30 [facility] [id number] 01/07/21 08:41 [facility] LESLY - Nurse 2 - General Ulcer CM Notes Start: 01/07/21 08:29 Freq: Status: Active Protocol: Activity Type Activity Date Activity User E-Sign Co-Sign Detail Recorded Client Recorded Date Recorded By Document 01/07/21 09:02 [facility] [id number] 01/07/21 09:03 [facility] GRACE - Nurse 3 - General Ulcer D/C NN Start: 01/07/21 08:29 Freq: Status: Active Protocol: Activity Type Activity Date Activity User E-Sign Co-Sign Detail Recorded Client Recorded Date Recorded By Document 01/07/21 09:10 [facility] [id number] 01/07/21 09:11 [facility] Wound Debrided: Midline abdominal ulcer in the center of healed incision. Laterality: Not Applicable Type of Debridement: Excisional debridement Anesthesia Used: 5% Lidocaine Gel Depth: Down to and including healthy tissue and in the subcutaneous layer Percentage of Wound Debrided: 100 Instrument Used: 3mm curette Tissue Removed: Subcutaneous tissue and slough Severity: Fat Layer Exposed Amt of Bleeding w/Debridement: Mild Bleeding Controlled with: Pressure Patient Tolerated Procedure: Patient tolerated procedure well Assessment & Plan Assessment/Plan (1) Skin ulcer of abdominal wall with fat layer exposed: Status: Chronic Code(s): L98.492 - Non-pressure chronic ulcer of skin of other sites with fat layer exposed Plan: Wound culture obtained today. Depending on the results of the culture, it may necessitate the need for antibiotics. Wound care is collagen hydrogel covered by dry gauze daily. Encouraged increase in protein intake to assist with wound healing. Follow up one week. (2) Duodenal ulcer, perforated: Status: Inactive Code(s): K26.5 - Chronic or unspecified duodenal ulcer with perforation (3) Obesity: Status: Acute Code(s): E66.9 - Obesity, unspecified Qualifiers: Obesity type: unspecified obesity type Obesity classification: adult class 1 (BMI 30 - 34.9) Serious obesity comorbidity presence: without serious comorbidity Body mass index: BMI 30.0-30.9 Qualified Code(s): E66.9 - Obesity, unspecified; Z68.30 - Body mass index [BMI]30.0-30.9, adult Office Visits / Consults: [id number] OV L4 Est (25 modifier) 111xxx-113xx: [id number] Magalys subq tissue 20 sq cm/<
== END 2021-01-11 23:59 ==
LOC: WC 08:11
PROVIDERS: PCP Internal Medicine; Visit Provider Nurse Practitioner Family
DX: L98.492 Non-pressure chronic ulcer of skin of other sites with fat layer exposed (principal); Z98.890 Other specified postprocedural states; Z87.19 Personal history of other diseases of the digestive system; K21.9 Gastro-esophageal reflux disease without esophagitis; Z79.899 Other long term (current) drug therapy; E66.9 Obesity, unspecified; Z68.30 Body mass index [BMI] 30.0-30.9, adult
CPT/HCPCS: 11042; 99213; G0463

== ENCOUNTER → 2021-01-07 14:21 | Outpatient (CLI) | payer MEDICARE, MEDICAID, SELFPAY ==
[2021-01-07 08:30] VITALS: BMI 28.6
== END ==
PROVIDERS: PCP Internal Medicine; Referring Provider Nurse Practitioner Family; Visit Provider Nurse Practitioner Family
DX: L98.499 Non-pressure chronic ulcer of skin of other sites with unspecified severity (principal); L98.492 Non-pressure chronic ulcer of skin of other sites with fat layer exposed; K21.9 Gastro-esophageal reflux disease without esophagitis; E66.9 Obesity, unspecified; Z98.890 Other specified postprocedural states; Z79.899 Other long term (current) drug therapy; Z68.30 Body mass index [BMI] 30.0-30.9, adult; Z87.19 Personal history of other diseases of the digestive system
CPT/HCPCS: 11042; 87070; 87075; 87205; 99213; G0463

== ENCOUNTER 2021-01-21 13:15 | Outpatient (RCR) | payer MEDICARE, MEDICAID, SELFPAY ==
[2021-01-12 00:55] VITALS: BP 115/78; PULSE 102; RESP 16; TEMP 36.3
[2021-01-14 13:51] VITALS: BP 137/76; PULSE 92; TEMP 36.1; BMI 28.6
--- NOTE | 2021-01-14 15:36 | PCM.WC.PN ---
History of Present Illness Date of Service: 01/14/21 Chief Complaint: Non healing midline abdominal ulcer History of Wound: Patient had emergency surgery at [facility] 09/30/20 for an exploratory laparotomy, washout, biopsy of gastric perforation, modified Hector patch and wound VAC placement for a perforated duodenal ulcer and acute peritonitis. She now has a midline abdominal incision that has an area that will not heal. The small area will scab over, then will re open and leak. She has been putting dry gauze on the scabbed area. Wound care - Collagen hydrogel covered with gauze daily. Wound culture from 01/07/21 was negative for bacterial growth. Patient states her appetite has been good. She denies any fevers. Progress of Wound: Mild improvement. The overall size is smaller. Objective Data Objective Data Vital Signs: Vital Signs Temp Pulse Resp BP 97.0 F L 92 16 137/76 H 01/14/21 13:51 01/14/21 13:51 01/12/21 00:55 01/14/21 13:51 Weight: 167 lb Body Mass Index (BMI) 28.6 Assessment & Plan Assessment/Plan (1) Skin ulcer of abdominal wall with fat layer exposed: Status: Chronic Code(s): L98.492 - Non-pressure chronic ulcer of skin of other sites with fat layer exposed (2) Obesity: Status: Acute Code(s): E66.9 - Obesity, unspecified Qualifiers: Obesity type: unspecified obesity type Obesity classification: adult class 1 (BMI 30 - 34.9) Serious obesity comorbidity presence: without serious comorbidity Body mass index: BMI 30.0-30.9 Qualified Code(s): E66.9 - Obesity, unspecified; Z68.30 - Body mass index [BMI]30.0-30.9, adult Plan: Wound culture obtained 01/07/21 showed no bacterial growth. Wound care is collagen hydrogel covered by dry gauze daily. Encouraged increase in protein intake to assist with wound healing.Instructed how to massage the midline abdominal scar with lotion to help with softening the scar. Follow up one week. Charges/Coding Procedures Integumentary 111xxx-113xx: [id number] Magalys subq tissue 20 sq cm/< Physical Exam Const alert and oriented x3 General Appearance: cooperative HEENT normocephalic Head and Scalp: atraumatic Eyes PERRL Resp clear to auscultation bilaterally Cardio regular rate Extremity normal to inspection Skin no rashes or lesions noted Neuro CN's II-XII intact bilaterally Psych Appearance: grossly normal and well kempt Thought Process: normal thought process Debridement Note Debridement Note Post-Debridement Measurements and Additional Note: Post-Debridement Measurements/Treatment WC - Nurse 2 - General Ulcer CM Notes Start: 01/14/21 13:51 Freq: Status: Active Protocol: Activity Type Activity Date Activity User E-Sign Co-Sign Detail Recorded Client Recorded Date Recorded By Document 01/14/21 14:10 [id number] 01/14/21 14:12 01/14/21 14:10 Wound Center Nurse 2 #1- MID ABDOMEN POST OP ([facility]) -Time 14:11 -Correct Patient Yes -Correct Side, Site, Position Yes -Correct Procedure Yes -Procedure Performed Yes -Type of Procedure Debridement -Clinical Debridement Subcutaneous -Tissue Removed Subcutaneous -Post Debridement (cm) - Length 0.4 -Post Debridement (cm) - Width 0.3 -Post Debridement (cm) - Depth 0.2 -Total Square (Post) (cm) 0.12 -Area of Debridement (cm) - Length 0.4 -Area of Debridement (cm) - Width 0.3 -Total Square (Area) (cm) 0.12 -Undermining/Tunneling No -Circular Undermining No -Wound/Ulcer Outcome Not Healed -Ulcer Cleansing Rinsed/ Irrigated with Saline -Foul Odor after Cleansing No -Bioengineered Tissue No -Bleeding Controlled with Pressure -Offloading No -Treatment Response Procedure Tolerated Well -Debridement - Subq, 1st 20sq cm Yes Pain Scale: 0-10 Numeric Is Patient Pain Free? Yes - Nurse 3 - General Ulcer D/C NN Start: 01/14/21 13:51 Freq: Status: Active Protocol: Activity Type Activity Date Activity User E-Sign Co-Sign Detail Recorded Client Recorded Date Recorded By Document 01/14/21 14:12 [email or web address] [id number] 01/14/21 14:13 01/14/21 14:12 Wound Care Nurse 3 #1- MID ABDOMEN POST OP ([facility]) -Ulcer Cleansing Rinsed/ Irrigated with Saline -Foul Odor after Cleansing No -Primary Dressing Applied C Hydrogel ($) -Primary Dressing Covered/Secured with Dry Gauze & Roll Gauze, Secured with Tape Pain Scale: 0-10 Numeric Is Patient Pain Free? Yes WC - Visit Discharge Discharge Condition Stable Ambulatory Status Ambulatory Transportation Private Auto Medication Reconcilliation completed & Yes provided to patient/care provider Clinical Summary of Care Provided Yes Wound debrided: Midline abdominal ulcer Type of Debridement: Excisional debridement Anesthesia Used: 5% Lidocaine Gel Depth: Down to and including healthy tissue and in the subcutaneous layer Percentage of wound debrided: 100 Instrument Used: 3mm curette Tissue Removed: Subcutaneous tissue and slough Severity: Limited To Skin Breakdown Amount of bleeding with debridement: Mild Bleeding Controlled with: Pressure Patient tolerated procedure: Patient tolerated procedure well
[2021-01-21 12:59] VITALS: BP 121/71; PULSE 97; RESP 18; TEMP 36.3; BMI 28.6
--- NOTE | 2021-01-21 13:39 | PN.PCM_ITS ---
History of Present Illness Date of Service: 01/21/21 Chief Complaint: Non healing midline abdominal ulcer History of Wound: Patient had emergency surgery at [facility] 09/30/20 for an exploratory laparotomy, washout, biopsy of gastric perforation, modified Hector patch and wound VAC placement for a perforated duodenal ulcer and acute peritonitis. She now has a midline abdominal incision that has an area that will not heal. The small area will scab over, then will re open and leak. She has been putting dry gauze on the scabbed area. Wound care - Collagen hydrogel covered with gauze daily. Wound culture from 01/07/21 was negative for bacterial growth. Patient states her appetite has been good. She denies any fevers. Progress of Wound: She is healed today. Objective Data Objective Data Vital Signs: Vital Signs Temp Pulse Resp BP 97.4 F L 97 18 121/71 H 01/21/21 12:59 01/21/21 12:59 01/21/21 12:59 01/21/21 12:59 Weight: 167 lb Body Mass Index (BMI) 28.6 Assessment & Plan Assessment/Plan (1) Skin ulcer of abdominal wall with fat layer exposed: (2) Obesity: QUALIFIERS: Obesity type: unspecified obesity type Obesity classification: adult class 1 (BMI 30 - 34.9) Serious obesity comorbidity presence: without serious comorbidity Body mass index: BMI 30.0-30.9 Qualified Code(s): E66.9 - Obesity, unspecified; Z68.30 - Body mass index [BMI]30.0-30.9, adult PLAN: Wound culture obtained 01/07/21 showed no bacterial growth. Ulcer is healed today.?? Instructed her to continue to lotion and to the scar area. Continue to do manual massage 1-2 times a day to help soften scarring. Instructed her it may take 6 to 12 months for the scarring to completely heal and to soften. Encouraged increase in protein intake to assist with wound healing.Instructed how to massage the midline abdominal scar with lotion to help with softening the scar. Follow up as needed. Charges/Coding Visit Charges Office Visits / Consults: [id number] OV L3 Est Physical Exam Const alert and oriented x3 General Appearance: cooperative HEENT normocephalic Head and Scalp: atraumatic Eyes PERRL Resp normal respiratory effort Cardio regular rate GI non-tender Palpation: soft Extremity normal capillary refill Skin Wound Narrative: Midline ulcer is healed today. The scarring has an indentation in the center of the scar tissue where the incision was located. Neuro CN's II-XII intact bilaterally Psych Appearance: grossly normal Thought Process: normal thought process Debridement Note Debridement Note Post-Debridement Measurements and Additional Note: Post-Debridement Measurement s/Treatment LESLY - Nurse 1 - General Ulcer Assessment Start: 01/14/21 13:51 Freq: Status: Active Protocol: ASHLI Activity Type Activity Date Activity User E-Sign Co-Sign Detail Recorded Client Recorded Date Recorded By Document 01/14/21 13:51 KR [id number] 01/14/21 13:54 KR Document 01/21/21 12:59 DL [id number] 01/21/21 13:04 DL 01/14/21 01/21/21 13:51 12:59 WC - Today's Visit Information Type of service Follow-up Visit Follow-up Visit (Physician/AUTOMATIC CENTRIFUGAL STATION OPERATOR (Physician/AUTOMATIC CENTRIFUGAL STATION OPERATOR ) ) Arrival Mode Ambulatory Ambulatory Transfer Assistance None Patient Identification Verified (Name & Yes Yes ) Patient Requires Transmission-Based No Precautions Height and Weight Body Mass Index (BMI) 28.6 28.6 BMI Classification Overweight Overweight Vital Signs Temperature (97.8 F-99.1 F) 97.0 F L 97.4 F L Temperature Source Temporal Temporal Pulse Rate (60-100) 92 97 Pulse Location Monitor Monitor Respiratory Rate (12-18) 18 Respiratory rate source Observation Blood Pressure (90/60-120/80) 137/76 H 121/71 H Blood Pressure Mean (mm Hg) 96 87 Source Monitor Position Sitting Blood Pressure Location Right Arm History Since Last Visit- (Skip if this is Patient's initial visit) Have you changed medications since your No No last visit? Any new allergies or adverse reactions No No Had a fall/change in ADL's that may No No increase risk of falls Signs or symptoms of abuse and/or No No neglect since last visit Have you been in the hospital since your No No last visit? Has dressing in place as prescribed Yes Yes Has compression in place as prescribed N/A N/A Has offloadiing in place as prescribed N/A N/A Experienced any changes in pain level or Yes No management Left Footwear Regular Shoe Right Footwear Regular Shoe Pain Scale: 0-10 Numeric Is Patient Pain Free? Yes Yes - Nurse 1 - General Ulcer Measurement Start: 01/14/21 13:51 Freq: Status: Active Protocol: Activity Type Activity Date Activity User E-Sign Co-Sign Detail Recorded Client Recorded Date Recorded By Document 01/14/21 13:51 KR [id number] 01/14/21 13:54 KR Document 01/21/21 12:59 DL [id number] 01/21/21 13:04 DL 01/14/21 01/21/21 13:51 12:59 Wound Center Nurse 1 #1- MID ABDOMEN POST OP ([facility]) -Current Size (cm) - Length 0.1 0 -Current Size (cm) - Width 0.1 0 -Current Size (cm) - Depth 0.1 0 -Total Square Cm 0.01 0 -Photo Taken Yes -Exudate Amt None Present None Present -Wound Margin Distinct, Flat & Intact Outline Attached -Granulation Amt None Present (0 Large (67-100%) %) -Granulation Quality [place] -Slough/Fibrin No -Necrosis Amt None Present (0 %) -Structure Exposed N/A -Texture (Haley-wound Skin Appearance) Assessed, Scarring Scarring -Moisture (Haley-wound Skin Appearance) No Abnormality, No Abnormality Assessed -Color (Haley-wound Skin Appearance) No Abnormality, No Abnormality Assessed -Temperature (Haley-wound Skin No Abnormality No Abnormality Appearance) (Pt Warm) (Pt Warm) -Tenderness on Palpation (Haley-wound No No Skin Appearance) -Ulcer Cleansing Rinsed/ Rinsed/ Irrigated with Irrigated with Saline Saline -Foul Odor after Cleansing No No -Anesthetic Used 4% Lidocaine Solution - Nurse 2 - General Ulcer CM Notes Start: 01/14/21 13:51 Freq: Status: Active Protocol: Activity Type Activity Date Activity User E-Sign Co-Sign Detail Recorded Client Recorded Date Recorded By Document 01/14/21 14:10 [id number] 01/14/21 14:12 Document 01/21/21 13:30 [id number] 01/21/21 13:31 JF 01/14/21 01/21/21 14:10 13:30 Wound Center Nurse 2 #1- MID ABDOMEN POST OP ([facility]) -Time 14:11 -Correct Patient Yes No -Correct Side, Site, Position Yes No -Correct Procedure Yes No -Procedure Performed Yes No -Type of Procedure Debridement -Clinical Debridement Subcutaneous -Tissue Removed Subcutaneous -Post Debridement (cm) - Length 0.4 0 -Post Debridement (cm) - Width 0.3 0 -Post Debridement (cm) - Depth 0.2 0 -Total Square (Post) (cm) 0.12 0 -Area of Debridement (cm) - Length 0.4 0 -Area of Debridement (cm) - Width 0.3 0 -Total Square (Area) (cm) 0.12 0 -Undermining/Tunneling No -Circular Undermining No -Wound/Ulcer Outcome Not Healed Healed- Epithelialized -Ulcer Cleansing Rinsed/ Irrigated with Saline -Foul Odor after Cleansing No -Bioengineered Tissue No -Bleeding Controlled with Pressure -Offloading No -Treatment Response Procedure Tolerated Well -Debridement - Subq, 1st 20sq cm Yes Pain Scale: 0-10 Numeric Is Patient Pain Free? Yes Yes - Nurse 3 - General Ulcer D/C NN Start: 01/14/21 13:51 Freq: Status: Active Protocol: Activity Type Activity Date Activity User E-Sign Co-Sign Detail Recorded Client Recorded Date Recorded By Document 01/14/21 14:12 [id number] 01/14/21 14:13 Document 01/21/21 13:31 [id number] 01/21/21 13:31 01/14/21 01/21/21 14:12 13:31 Wound Care Nurse 3 #1- MID ABDOMEN POST OP ([facility]) -Ulcer Cleansing Rinsed/ Irrigated with Saline -Foul Odor after Cleansing No -Primary Dressing Applied C Hydrogel ($) -Primary Dressing Covered/Secured with Dry Gauze & Roll Gauze, Secured with Tape Pain Scale: 0-10 Numeric Is Patient Pain Free? Yes Yes - Visit Discharge Discharge Condition Stable Stable Ambulatory Status Ambulatory Ambulatory Transportation Private Auto Private Auto Medication Reconcilliation completed & Yes Yes provided to patient/care provider Clinical Summary of Care Provided Yes Yes No debridement was completed: No debridement was completed today
== END 2021-01-21 13:51 | disposition home or self-care (01) ==
LOC: WC 13:15
PROVIDERS: PCP Internal Medicine; Visit Provider Nurse Practitioner Family
DX: L98.492 Non-pressure chronic ulcer of skin of other sites with fat layer exposed (principal); E66.9 Obesity, unspecified; Z68.30 Body mass index [BMI] 30.0-30.9, adult
CPT/HCPCS: 11042; 99213; G0463

== ENCOUNTER 2021-05-19 13:40 | Emergency (ER) | payer MEDICARE, MEDICAID, SELFPAY ==
[2021-05-19 13:41] VITALS: BP 126/86; PULSE 88; RESP 16; TEMP 36.1; O2SAT 100; BMI 26.5
[2021-05-19 13:43] VITALS: BP 126/86; PULSE 88; RESP 16; TEMP 36.1; O2SAT 100
--- NOTE | 2021-05-19 14:26 | EX.ED.DYSGE1 ---
HPI History of Present Illness Chief Complaint: Cellulitis Informant: patient Narrative Narrative: Patient is a 65-year-old female presenting with concern for worsening infection of her left forearm. Patient states about 2 weeks ago she sustained a Skin tear on her left forearm from her laundry number. She states she tends to get a lot of bruising and skin tears on her arms. She is not on any blood thinners including Plavix or aspirin. About a week ago she removed a bandage and that adhesive pulled off a piece of skin. She was placed on Keflex which she states she is taking 3 times a day for skin infection. She notes that she put a bandage over her arm yesterday from the site and when she took it off some of her scab came off again. She notes she is been putting a triple antibiotic ointment on it. She states it felt a little bit more tender and itchy today. She came in for further evaluation. Denies any systemic symptoms such as fever or chills. [facility] Medical History Duodenal ulcer, perforated FHx: cholecystectomy GERD (gastroesophageal reflux disease) Rectal prolapse Home Medications amitriptyline 150 mg PO QHS 01/02/15 [History Last Taken Unknown] diazepam 5 mg PO BID 01/02/15 [History Last Taken Unknown] dicyclomine 10 mg PO TIDAC 01/02/15 [History Last Taken Unknown] gabapentin 200 mg PO TID 01/02/15 [History Last Taken 05/04/19 12:50] levothyroxine 100 mcg PO DAILY 01/02/15 [History Last Taken Unknown] baclofen 10 mg PO TID 05/02/19 [History Last Taken 05/04/19 12:50] Magic Mouth Wash 5 ml PO TID 09/30/20 [History Last Taken Unknown] pantoprazole 40 mg PO BID 01/07/21 [History Last Taken Unknown] clindamycin HCl [Cleocin HCl] 300 mg PO Q6H #28 cap 05/19/21 [Rx Last Taken Unknown] Allergy/AdvReac Type Severity Reaction Status Date / Time morphine Allergy Hives Verified 05/19/21 13:41 Sulfa (Sulfonamide Allergy Hives Verified 05/19/21 13:41 Antibiotics) Tetracyclines Allergy Rash Verified 05/19/21 13:41 valacyclovir Allergy Shortness Verified 05/19/21 13:41 of breath acetaminophen [From Vicodin] AdvReac Upset Verified 05/19/21 13:41 Stomach codeine AdvReac Vomiting Verified 05/19/21 13:41 hydrocodone bitartrate AdvReac Upset Verified 05/19/21 13:41 [From Vicodin] Stomach hydromorphone HCl AdvReac HYPOTENSION Verified 05/19/21 13:41 [From Dilaudid] meloxicam AdvReac MOOD Verified 05/19/21 13:41 tizanidine AdvReac HYPOTENSION Verified 05/19/21 13:41 Surgical History H/O: hysterectomy History of incisional hernia repair History of Lindsay fundoplication Social History Smoking Status: Never smoker ROS ROS ED Constitutional Constitutional ED: Denies chills, fever(s) or malaise Eyes Eyes: Denies blurry vision or loss of vision ENT ENT ED: Denies rhinorrhea or sore throat Cardiovascular Cardiovascular: Denies chest pain or dizziness Respiratory/Chest Respiratory/Chest: Denies cough or dyspnea Gastrointestinal Gastrointestinal: Denies nausea or vomiting Genitourinary Genitourinary ED: Denies dysuria or hematuria Musculoskeletal Musculoskeletal: Denies arthralgias or myalgias Integumentary Reports rash and other Details: skin year - left forearm ; Denies wounds Neurologic Neurologic: Denies focal weakness or headache(s) Psychiatric Psychiatric: Denies anxiety or behavioral changes EXAM Physical Exam Const Vital Signs: 05/19/21 13:41 05/19/21 13:43 Temperature 97.0 F L 97.0 F L Temperature Source Temporal Temporal Pulse Rate 88 88 Respiratory Rate 16 16 Blood Pressure 126/86 H 126/86 H Blood Pressure Mean 99 99 Pulse Ox 100 100 Oxygen Delivery Method Room Air Room Air Positive well nourished and well developed General Appearance ED: well developed HEENT Reports moist mucous membranes Eyes PERRL and EOMs intact bilaterally Neck supple Chest Wall inspection of chest normal Resp normal respiratory effort and clear to auscultation bilaterally Cardio regular rate, regular rhythm and no murmurs Extremity normal to inspection General Extremety ED: Negative for edema or tenderness General Extremity: Negative for edema Neuro oriented x3 Sensorium / Orientation: alert Motor Exam: Negative for general weakness Psych mental status grossly normal Skin Skin Narrative: Healing skin tear on the left forearm with surrounding scattered ecchymosis on both forearms. Patient has 3 small areas of ulceration on her forearm with granulomatous tissue over it. There is some very mild erythema around 2 of the ulcerations however there is no associated fluctuance. There is no lymphangitic streaking. No drainage appreciated. MDM MDM MDM Narrative Medical decision making narrative: Patient is evaluated for wound check to her left forearm. I suspect she is having a localized allergic reaction from the triple antibiotic ointment she has been placing on. I do not think she is having a worsening infection. She will continue taking the Keflex. She is given a [id number] prescription for Bactrim should she have worsening of the redness/pain despite stopping the antibiotic ointment. She is instructed to use Vaseline as needed to the wounds to prevent things from sticking to it. She is counseled return precautions. She verbalizes agreement understanding with this plan. She discharged home in stable condition. Discharge Plan Triage Chief Complaint: Cellulitis ED Provider: Cristy Bo Dx/Rx/DC Orders Clinical Impression: Open wound of left forearm, Dermatitis Instructions: ED Skin Avulsion Prescriptions: New clindamycin HCl [Cleocin HCl] 300 mg capsule 300 mg PO Q6H Qty: 28 RF: 0 No Action amitriptyline 150 MG tablet 150 mg PO QHS RF: 0 levothyroxine 50 MCG tablet 100 mcg PO DAILY RF: 0 gabapentin 100 MG capsule 200 mg PO TID RF: 0 dicyclomine 10 MG capsule 10 mg PO TIDAC RF: 0 diazepam 5 MG tablet 5 mg PO BID RF: 0 baclofen 10 MG tablet 10 mg PO TID RF: 0 Magic Mouth Wash 5 ml PO TID RF: 0 pantoprazole 40 MG tablet 40 mg PO BID RF: 0 Primary Care Provider: Farhad Gillespie Referrals: Farhad Gillsepie MD [Primary Care Provider] - Activity Restrictions/Additional Instructions: Stop using the antibiotic ointment on your arm. Just use Vaseline instead. I suspect you are having a localized reaction to the ointment as well as irritation from the adhesives. You have been given a prescription for clindamycin. Continue your current antibiotic and if your symptoms worsen you may start taking this antibiotic but please wait to see if your symptoms worsen or for 48 hours to see if there is any improvement/no further worsening before starting these antibiotics. Follow-up with your primary care doctor this week for wound check. Disposition Disposition: Home, Self Care
== END 2021-05-19 14:50 | disposition home or self-care (01) ==
PROVIDERS: Emergency Provider Emergency Medicine; PCP Internal Medicine
DX: S51.802A Unspecified open wound of left forearm, initial encounter (principal); L30.9 Dermatitis, unspecified; X58.XXXA Exposure to other specified factors, initial encounter
CPT/HCPCS: 99282

== ENCOUNTER → 2022-05-29 | Outpatient (CLI) | payer MEDICARE, MEDICAID, SELFPAY ==
--- NOTE | 2022-05-29 10:53 | RAD_ITS ---
STUDY: X-RAY - CERVICAL SPINE REASON FOR EXAM: Female, 66 years old. CERVICAL SPRAIN TECHNIQUE: XR Spine Cervical 4 or 5 Views COMPARISON: None FINDINGS: Normal anterior atlantoaxial articulation. The odontoid process is obscured by the overlying hard palate on the open mouth view. Therefore, it is not fully evaluated by plain film. 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 There is C5-6 degenerative disc disease with disc space narrowing. The soft tissue structures are unremarkable. RAD/Cerv Spine 4 or 5 Views IMPRESSION: There are degenerative changes at C5-6 as noted above. The odontoid process is obscured by the overlying hard palate on the open mouth view. Therefore, it is not fully evaluated by plain film. Electronically Signed: Wellington Thakur MD at 17:33 EDT ,
== END | disposition home or self-care (01) ==
PROVIDERS: PCP Internal Medicine; Referring Provider Chiropractor; Visit Provider Chiropractor
DX: S13.4XXA Sprain of ligaments of cervical spine, initial encounter (principal)
CPT/HCPCS: 72050